=== PATIENT | female | born 1985 | race Two or more races ===

== ENCOUNTER 2020-08-15 09:26 | Emergency (ER) | payer OTHER ==
[~2020-08-15] VITALS: Ht 154.9 cm; Wt 56.7 kg
[2020-08-15] MEDS ORDERED: IBUPROFEN 600 MG TABLET ONE (09:51)
[2020-08-15] MEDS ORDERED: ACETAMINOPHEN ES 500 MG TABLET ONE (09:51)
[2020-08-15] MEDS: IBUPROFEN 600 MG TABLET PO ONE (09:55)
[2020-08-15] MEDS: ACETAMINOPHEN ES 500 MG TABLET PO ONE (09:55)
--- NOTE | 2020-08-15 10:00 | NUR ---
BIB BF C/O R FOOT SWELLING STARTED YESTERDAY. DENIES INJURY. PT AAOX4, VSS. RR EVEN & UNLABORED. DENIES ANY OTHER DISCOMFORT. PT SEEN & EVAL'D BY DR. SANDERS. MEDICATED PER ERMD ORDER, PT TAYLOR WELL. WILL CONT TO MONITOR.
[2020-08-15] MEDS: ALBUTEROL SULFATE INH 18 GM HFA.AER.AD IH PRN (10:14)
[2020-08-15] MEDS ORDERED: CEPH500T PO (11:19)
[2020-08-15 11:31] VITALS: BP 110/78
--- NOTE | 2020-08-15 11:31 | NUR ---
Patient discharged to home in stable condition. Written and verbal after care instructions given. Patient verbalizes understanding of instruction.
== END 2020-08-15 11:32 | disposition home or self-care (01) ==
LOC: ER 09:30
DX: M25.571 Pain in right ankle and joints of right foot (principal); R22.41 Localized swelling, mass and lump, right lower limb
CPT/HCPCS: 73610-TC; 93971-TC

== ENCOUNTER 2020-10-16 18:22 | Emergency (ER) | payer OTHER ==
[~2020-10-16] VITALS: Ht 154.9 cm; Wt 55.3 kg
[~2020-10-16 18:22] MED LIST: CEPH500T PO
[2020-10-16 19:02] VITALS: BP 103/73
--- NOTE | 2020-10-16 19:05 | NUR ---
TO ER BED 3, C/O "Moving- tripped hand went through glass door", A&OX4, BREATHING EVEN AND UNLABORED
[2020-10-16] MEDS ORDERED: IBUPROFEN 600 MG TABLET ONE (19:10)
--- NOTE | 2020-10-16 19:15 | NUR ---
LINE LEAD AT BEDSIDE
[2020-10-16] MEDS ORDERED: IBUPROFEN 600 MG TABLET PO ONE (19:30)
[2020-10-16] MEDS ORDERED: CEPH500C2 PO (20:08)
[2020-10-16] MEDS ORDERED: MUPI22OI2 TP (20:08)
[2020-10-16] MEDS ORDERED: CEPHALEXIN MONOHYDRATE 500 MG CAPSULE PO ONE ×2 (20:30)
--- NOTE | 2020-10-16 20:31 | NUR ---
Patient discharged to home in stable condition. Rx and Written and verbal after care instructions given. Patient verbalizes understanding of instruction.
== END 2020-10-16 20:31 | disposition home or self-care (01) ==
LOC: ER 18:29
DX: S61.011A Laceration without foreign body of right thumb without damage to nail, initial encounter (principal); F17.200 Nicotine dependence, unspecified, uncomplicated; Z79.899 Other long term (current) drug therapy; W25.XXXA Contact with sharp glass, initial encounter; Y93.89 Activity, other specified; Y92.89 Other specified places as the place of occurrence of the external cause; Y99.8 Other external cause status
CPT/HCPCS: 73140; 99283; A6403

== ENCOUNTER 2021-07-22 10:47 | Emergency (ER) | payer OTHER ==
[~2021-07-22 10:47] MED LIST changes: +CEPH500C2 PO; +MUPI22OI2 TP
--- NOTE | 2021-07-22 12:00 | NUR ---
Called NO response- Edgar
--- NOTE | 2021-07-22 12:30 | NUR ---
Called NO response- shraddha
--- NOTE | 2021-07-22 12:47 | NUR ---
Called NO response- shraddha
== END 2021-07-22 12:48 | disposition home or self-care (01) ==
LOC: ER 10:53
DX: Z53.21 Procedure and treatment not carried out due to patient leaving prior to being seen by health care provider (principal)

== ENCOUNTER 2022-06-11 08:04 | Emergency (ER) | payer OTHER ==
[~2022-06-11] VITALS: Ht 154.9 cm; Wt 55.3 kg
[2022-06-11] MEDS ORDERED: IBUPROFEN 600 MG TABLET PO ONE (08:30)
[2022-06-11] MEDS ORDERED: IBUPROFEN 600 MG TABLET ONE (08:37)
[2022-06-11] MEDS ORDERED: IBUP-1953 PO (09:26)
[2022-06-11 09:34] VITALS: BP 110/66
== END 2022-06-11 09:35 | disposition home or self-care (01) ==
LOC: ER 08:09
DX: S93.402A Sprain of unspecified ligament of left ankle, initial encounter (principal); S00.93XA Contusion of unspecified part of head, initial encounter; F17.200 Nicotine dependence, unspecified, uncomplicated; W18.30XA Fall on same level, unspecified, initial encounter; Y93.89 Activity, other specified; Y92.89 Other specified places as the place of occurrence of the external cause; Y99.8 Other external cause status
CPT/HCPCS: 73610-TC; 73630-TC

== ENCOUNTER 2022-10-04 23:52 | Emergency (ER) | payer OTHER ==
[~2022-10-04] VITALS: Ht 154.9 cm; Wt 55.3 kg
[~2022-10-04 23:52] MED LIST changes: +IBUP-1953 PO
[2022-10-05 00:38] VITALS: BP 121/76; TEMP 98.5; O2SAT 98
[2022-10-05] MEDS ORDERED: CLIN300C12 PO ×2 (00:46→00:53)
[2022-10-05] MEDS ORDERED: CLINDAMYCIN HCL 150 MG CAPSULE PO ONE (01:00)
[2022-10-05] MEDS ORDERED: IBUPROFEN 600 MG TABLET PO ONE (01:00)
[2022-10-05] MEDS ORDERED: CLINDAMYCIN HCL 150 MG CAPSULE ONE (01:02)
[2022-10-05] MEDS ORDERED: IBUPROFEN 600 MG TABLET ONE (01:03)
== END 2022-10-05 01:11 | disposition home or self-care (01) ==
LOC: ER 23:53
DX: L03.116 Cellulitis of left lower limb (principal); F17.200 Nicotine dependence, unspecified, uncomplicated